=== PATIENT | female | born 1955 | race Caucasian/White ===

== ENCOUNTER → 2016-09-22 | Outpatient (CLI) | payer OTHER ==
[~2016-09-22] MED LIST: ASPI-496 PO; BUDE10.2; CA C1TAB62 PO; CALC3.7S5 NS; CALC400T6 PO; CEFD300C37 PO; CHOL5000 PO; GABA100C PO; IRON1TAB2 PO; LEVO100T PO; LEVO25TA2 SL; LIOT5TAB3 PO; METR500T PO; MONT10TA9 PO; OMEGA RED KRILL PO; ONDA4TAB10 PO; PANT40TA5 PO; POLY17PO5 PO; PROG100C2 PO; ROSU5TAB PO; [UNRECOGNIZED DRUG - CODE]; [UNRECOGNIZED DRUG - CODE] SC; [UNRECOGNIZED DRUG - OTHER] PO; biest; estradiol SL
[2016-09-22 16:23] LABS: ASPARTATE AMINO TRANSFERASE 11 U/L (15-37); BLOOD UREA NITROGEN 13 mg/dL (7-18)
== END | disposition home or self-care (01) ==
LOC: STAR 14:55
PROVIDERS: ATTEND Surgery
DX: Z01.818 Encounter for other preprocedural examination (principal); R06.02 Shortness of breath; M47.894 Other spondylosis, thoracic region; Z90.49 Acquired absence of other specified parts of digestive tract
CPT/HCPCS: 36415; 71020; 80053; 85025; 93005

== ENCOUNTER 2016-10-21 07:34 | Emergency (ER) | payer OTHER ==
[~2016-10-21] VITALS: Ht 162.6 cm; Wt 80.0 kg
[~2016-10-21 07:34] MED LIST changes: +CALC200T3 PO; +OXYC-302 PO; +VITAMIN B12 INJ
[2016-10-21 07:37] VITALS: BP 140/87
[2016-10-21] MEDS ORDERED: SODIUM CHLORIDE 0.9% 1,000 ML IV ONE (07:59)
[2016-10-21] MEDS ORDERED: FAMOTIDINE 20 MG/2 ML IVP ONE (08:00)
[2016-10-21] MEDS ORDERED: SODIUM CHLORIDE 0.9% 1,000ML IVBOLUS ONE (08:00)
[2016-10-21] MEDS ORDERED: ONDANSETRON 2MG/ML, 2ML IVPush ONE (08:00)
[2016-10-21] MEDS ORDERED: MORPHINE SULFATE 4 MG/ML, 1ML IVPush PRN (08:00)
[2016-10-21] MEDS ORDERED: DIPHENHYDRAMINE 50 MG/ML, 1ML ONE (08:17)
[2016-10-21] MEDS ORDERED: KETOROLAC 30 MG/1 ML ONE (08:17)
[2016-10-21] MEDS ORDERED: KETOROLAC 30 MG/1 ML IVPush ONE (08:30)
[2016-10-21] MEDS ORDERED: DIPHENHYDRAMINE 50 MG/ML, 1ML IVPush PRN (08:30)
[2016-10-21 08:40] LABS: ASPARTATE AMINO TRANSFERASE 17 U/L (15-37); BLOOD UREA NITROGEN 10 mg/dL (7-18)
[2016-10-21] MEDS ORDERED: OMNIPAQUE 350 MG/ML, 100ML BOTTLE ONE (09:25)
== END 2016-10-21 10:22 | disposition home or self-care (01) ==
LOC: ED 10:16
DX: R10.84 Generalized abdominal pain (principal); Z90.49 Acquired absence of other specified parts of digestive tract; G43.909 Migraine, unspecified, not intractable, without status migrainosus; Z88.1 Allergy status to other antibiotic agents; Z88.8 Allergy status to other drugs, medicaments and biological substances; Z88.6 Allergy status to analgesic agent
CPT/HCPCS: 36415; 74000; 74177; 80053; 81003; 83605; 83690; 85025; 85610; 96361; 96374; 96375; 99285; J1200; J1885; J2405; J7030; Q9967; S0028

== ENCOUNTER 2017-03-01 08:04 | Emergency (ER) | payer OTHER ==
[~2017-03-01] VITALS: Ht 162.6 cm; Wt 77.8 kg
[2017-03-01] MEDS ORDERED: [UNRECOGNIZED DRUG - CODE] SQ (08:36)
[2017-03-01] MEDS ORDERED: ONDANSETRON 2MG/ML, 2ML ONE (08:50)
[2017-03-01] MEDS ORDERED: morphine SULFATE 10 MG/ML, 1ML ONE (08:50)
[2017-03-01 08:58] LABS: HEMATOCRIT 43.7 % (34.6-47.8); HEMOGLOBIN 14.5 g/dL (11.7-16.4); WHITE BLOOD COUNT 6.6 x10^3/uL (3.4-10)
[2017-03-01] MEDS ORDERED: SODIUM CHLORIDE 0.9% 1,000ML IVBOLUS ONE (09:00)
[2017-03-01] MEDS ORDERED: MORPHINE SULFATE 4 MG/ML, 1ML IVPush PRN (09:00)
[2017-03-01] MEDS ORDERED: ONDANSETRON 2MG/ML, 2ML IVPush ONE (09:00)
[2017-03-01 09:03] LABS: ASPARTATE AMINO TRANSFERASE 13 U/L (15-37); BLOOD UREA NITROGEN 15 mg/dL (7-18)
[2017-03-01 11:07] VITALS: BP 111/77
== END 2017-03-01 11:34 | disposition home or self-care (01) ==
LOC: ED 09:26
DX: M94.0 Chondrocostal junction syndrome [Tietze] (principal); G89.29 Other chronic pain; G43.909 Migraine, unspecified, not intractable, without status migrainosus; I45.10 Unspecified right bundle-branch block; Z90.49 Acquired absence of other specified parts of digestive tract
CPT/HCPCS: 36415; 71101; 74022; 80053; 81003; 85025; 93005; 96361; 96374; 96375; 99285; J2405; J7030

== ENCOUNTER → 2017-09-05 | Outpatient (CLI) | payer OTHER ==
[~2017-09-05] MED LIST changes: +OMNIPAQUE 350 MG/ML, 100ML BOTTLE ONE; +[UNRECOGNIZED DRUG - CODE] SQ
[2017-09-05 15:19] LABS: BASOPHILS # (AUTO) 0.08 x10^3/uL (0-0.1); BASOPHILS % (AUTO) 1 % (0-1); EOSINOPHILS # (AUTO) 0.14 x10^3/uL (0-0.4); EOSINOPHILS % (AUTO) 2 % (1-7); LYMPHOCYTES # (AUTO) 2.38 x10^3/uL (1-3.4); LYMPHOCYTES % (AUTO) 35 % (22-44); MD NO; MEAN CORPUSCULAR HEMOGLOBIN 26.3 pg (27.0-34.8); MEAN CORPUSCULAR HGB CONC 33.4 g/dL (32.4-35.8); MEAN CORPUSCULAR VOLUME 78.7 fL (80-100); MEAN PLATELET VOLUME 8.3 fL (7.4-10.4); MONOCYTES # (AUTO) 0.63 x10^3/uL (0.2-0.8); MONOCYTES % (AUTO) 9 % (2-9); NEUTROPHILS # (AUTO) 3.48 x10^3/uL (1.8-6.8); NEUTROPHILS % (AUTO) 52 % (42-75); PLATELET COUNT 341 x10^3/uL (130-400); RED BLOOD COUNT 5.74 x10^6/uL (3.82-5.3); RED CELL DISTRIBUTION WIDTH 13.7 % (9.6-15.2)
[2017-09-05 15:31] LABS: ALANINE AMINOTRANSFERASE 22 U/L (12-78); ALBUMIN 3.6 g/dL (3.4-5.0); ANION GAP 8 mmol/L (5-15); CALCIUM 9.2 mg/dL (8.5-10.1); CHLORIDE 104 mmol/L (98-107)
[2017-09-05 15:34] LABS: ALKALINE PHOSPHATASE 84 U/L (45-117); BILIRUBIN,TOTAL 0.3 mg/dL (0.2-1.0); CREATININE 0.81 mg/dL (0.55-1.02); TOTAL PROTEIN 7.5 g/dL (6.4-8.2)
[2017-09-05 15:43] LABS: FREE T4 (FREE THYROXINE) 0.13 ng/dL (0.76-1.46); THYROID STIMULATING HORMONE 0.006 mIU/L (0.358-3.740)
[2017-09-05 15:43] LABS: MICROSCOPIC INDICATED
[2017-09-05 15:44] LABS: CULTURE INDICATED? YES
== END ==
LOC: RAD 14:28
PROVIDERS: ATTEND Nurse Practitioner Primary Care
DX: Z13.220 Encounter for screening for lipoid disorders (principal); K44.9 Diaphragmatic hernia without obstruction or gangrene; E78.1 Pure hyperglyceridemia; E23.0 Hypopituitarism; E03.9 Hypothyroidism, unspecified; R53.83 Other fatigue; E61.1 Iron deficiency; E55.9 Vitamin D deficiency, unspecified; R51 Headache
CPT/HCPCS: 36415; 74177; 80053; 80074; 81001; 82150; 82728; 83540; 83550; 83690; 84439; 84443; 84466; 84480; 85025; 86644; 86645; 86663; 86664; 86665; 86747; 87086; Q9967

== ENCOUNTER 2017-09-07 22:04 | Inpatient (IN) | payer OTHER ==
[~2017-09-07] VITALS: Ht 162.6 cm; Wt 84.8 kg
[~2017-09-07 22:04] MED LIST changes: -OMNIPAQUE 350 MG/ML, 100ML BOTTLE ONE
[2017-09-08 00:01] LABS: BASOPHILS # (AUTO) 0.05 x10^3/uL (0-0.1); BASOPHILS % (AUTO) 1 % (0-1); EOSINOPHILS # (AUTO) 0.15 x10^3/uL (0-0.4); EOSINOPHILS % (AUTO) 2 % (1-7); LYMPHOCYTES # (AUTO) 2.72 x10^3/uL (1-3.4); LYMPHOCYTES % (AUTO) 39 % (22-44); MD NO; MEAN CORPUSCULAR HEMOGLOBIN 26.7 pg (27.0-34.8); MEAN CORPUSCULAR HGB CONC 33.6 g/dL (32.4-35.8); MEAN CORPUSCULAR VOLUME 79.3 fL (80-100); MEAN PLATELET VOLUME 8.4 fL (7.4-10.4); MONOCYTES # (AUTO) 0.63 x10^3/uL (0.2-0.8); MONOCYTES % (AUTO) 9 % (2-9); NEUTROPHILS # (AUTO) 3.38 x10^3/uL (1.8-6.8); NEUTROPHILS % (AUTO) 49 % (42-75); PLATELET COUNT 355 x10^3/uL (130-400); RED BLOOD COUNT 5.69 x10^6/uL (3.82-5.3); RED CELL DISTRIBUTION WIDTH 13.7 % (9.6-15.2)
[2017-09-08 00:13] LABS: ALANINE AMINOTRANSFERASE 22 U/L (12-78); ALBUMIN 3.6 g/dL (3.4-5.0); ANION GAP 7 mmol/L (5-15); CALCIUM 9.3 mg/dL (8.5-10.1); CHLORIDE 106 mmol/L (98-107); CREATININE 0.82 mg/dL (0.55-1.02)
[2017-09-08 00:15] LABS: ALKALINE PHOSPHATASE 86 U/L (45-117); BILIRUBIN,TOTAL 0.3 mg/dL (0.2-1.0); TOTAL PROTEIN 7.4 g/dL (6.4-8.2)
[2017-09-08 00:21] LABS: TROPONIN I < 0.015 ng/mL (0.000-0.045)
[2017-09-08] MEDS ORDERED: PROCHLORPERAZINE 5 MG/ML, 2ML IVPush ONE (00:30)
[2017-09-08] MEDS ORDERED: MORPHINE SULFATE 4 MG/ML, 1ML IVPush ONE (00:30)
[2017-09-08] MEDS ORDERED: METOCLOPRAMIDE 5 MG/ML, 2ML IVPush ONE (00:30)
[2017-09-08] MEDS ORDERED: FENTANYL PF 100 MCG/2ML IVPush ONE (00:30)
[2017-09-08 00:33] LABS: INTERNATIONAL NORMALIZED RATIO 0.96 (0.93-1.1)
[2017-09-08] MEDS ORDERED: FENTANYL PF 100 MCG/2ML ONE (00:33)
[2017-09-08 00:37] LABS: CULTURE INDICATED? YES; MICROSCOPIC INDICATED
[2017-09-08] MEDS ORDERED: OMNIPAQUE 350 MG/ML, 100ML BOTTLE ONE (01:42)
[2017-09-08] MEDS ORDERED: CYAN10002 SQ (02:06)
[2017-09-08] MEDS ORDERED: APIX5TAB PO (02:06)
[2017-09-08] MEDS ORDERED: METOCLOPRAMIDE 5 MG/ML, 2ML ONE (02:11)
[2017-09-08] MEDS ORDERED: morphine SULFATE 10 MG/ML, 1ML IVPush PRN (02:30)
[2017-09-08] MEDS ORDERED: POLYETHYLENE GLYCOL 17 GM PACKET PO PRN (02:30)
[2017-09-08] MEDS ORDERED: BISACODYL 10 MG SUPP PR PRN (02:30)
[2017-09-08] MEDS ORDERED: PROMETHAZINE 25 MG/ML, 1ML IM PRN (02:30)
[2017-09-08] MEDS ORDERED: hydrALAzine 20 MG/ML, 1ML IVPush PRN (02:30)
[2017-09-08] MEDS: HEPARIN 5,000 UNITS/ML, 1ML SQ SCH ×3 (02:30→20:19)
[2017-09-08] MEDS ORDERED: ONDANSETRON 2MG/ML, 2ML IVPush PRN (02:30)
[2017-09-08] MEDS ORDERED: ONDANSETRON ODT 4 MG PO PRN (02:30)
[2017-09-08 03:03] VITALS: BP 112/70
[2017-09-08 03:22] LABS: HEMOGLOBIN A1C 6.2 % (4.2-6.3)
[2017-09-08 03:24] LABS: FREE T4 (FREE THYROXINE) 0.12 ng/dL (0.76-1.46); THYROID STIMULATING HORMONE 0.008 mIU/L (0.358-3.740)
[2017-09-08] MEDS: B12 MC SCH ×3 (03:30→16:37)
[2017-09-08] MEDS: SODIUM CHLORIDE 0.9% 1,000 ML IV SCH ×3 (03:44→22:25)
[2017-09-08] MEDS ORDERED: LIOTHYRONINE 5 MCG TABLET HOMEMEDPO ONE (06:00)
[2017-09-08 06:29] VITALS: BP 117/69
[2017-09-08] MEDS: OXYcodone IR 5MG TABLET PO PRN ×3 (08:03→20:19)
[2017-09-08] MEDS: CYANOCOBALAMIN 1,000 MCG/ML, 1ML SQ SCH (08:04)
[2017-09-08] MEDS: SENNA/DOCUSATE TABLET PO SCH (08:04)
[2017-09-08 14:00] VITALS: BP 109/70
[2017-09-08] MEDS ORDERED: LIOTHYRONINE 5 MCG TABLET PO SCH ×2 (16:30→21:00)
[2017-09-08 18:48] VITALS: BP 106/70
[2017-09-08] MEDS: LIOTHYRONINE 5 MCG TABLET PO SCH (20:19)
[2017-09-08] MEDS: SOMATROPIN SQ SCH (20:20)
[2017-09-08] MEDS: DIPHENHYDRAMINE 25 MG CAPSULE PO PRN (22:25)
[2017-09-09] MEDS: B12 MC SCH ×3 (02:05→19:30)
[2017-09-09 05:15] VITALS: BP 99/64
[2017-09-09 05:42] LABS: BASOPHILS # (AUTO) 0.02 x10^3/uL (0-0.1); BASOPHILS % (AUTO) 1 % (0-1); EOSINOPHILS # (AUTO) 0.15 x10^3/uL (0-0.4); EOSINOPHILS % (AUTO) 3 % (1-7); LYMPHOCYTES % (AUTO) 50 % (22-44); MD NO; MEAN CORPUSCULAR HEMOGLOBIN 26.6 pg (27.0-34.8); MEAN CORPUSCULAR HGB CONC 33.1 g/dL (32.4-35.8); MEAN CORPUSCULAR VOLUME 80.4 fL (80-100); MEAN PLATELET VOLUME 8.3 fL (7.4-10.4); MONOCYTES # (AUTO) 0.42 x10^3/uL (0.2-0.8); MONOCYTES % (AUTO) 9 % (2-9); NEUTROPHILS # (AUTO) 1.77 x10^3/uL (1.8-6.8); NEUTROPHILS % (AUTO) 37 % (42-75); PLATELET COUNT 277 x10^3/uL (130-400); RED BLOOD COUNT 4.88 x10^6/uL (3.82-5.3); RED CELL DISTRIBUTION WIDTH 13.7 % (9.6-15.2)
[2017-09-09 05:56] LABS: ALBUMIN 2.8 g/dL (3.4-5.0); ANION GAP 7 mmol/L (5-15); CHLORIDE 110 mmol/L (98-107)
[2017-09-09 06:01] LABS: ALANINE AMINOTRANSFERASE 21 U/L (12-78); ALKALINE PHOSPHATASE 71 U/L (45-117); BILIRUBIN,TOTAL 0.3 mg/dL (0.2-1.0); CHOL/HDL RATIO 5.5; CHOLESTEROL, TOTAL 148 mg/dL (140-239); CREATININE 0.76 mg/dL (0.55-1.02); HDL CHOL % 18 % (28-40); HDL CHOLESTEROL (DIRECT) 27 mg/dL (40-60); LDL CHOLESTEROL,CALCULATED 73 mg/dL (54-169); LDL/HDL RATIO 2.7 (0.5-3.0); TOTAL PROTEIN 5.8 g/dL (6.4-8.2); TRIGLYCERIDES 238 mg/dL (50-200); VLDL CHOLESTEROL 48 mg/dL (0-25)
[2017-09-09] MEDS: HEPARIN 5,000 UNITS/ML, 1ML SQ SCH ×2 (06:22→15:12)
[2017-09-09] MEDS: LIOTHYRONINE 5 MCG TABLET PO SCH ×4 (06:22→20:15)
[2017-09-09 08:00] VITALS: BP 120/80
[2017-09-09] MEDS: OXYcodone IR 5MG TABLET PO PRN ×2 (08:20→15:12)
[2017-09-09] MEDS: SENNA/DOCUSATE TABLET PO SCH (08:21)
[2017-09-09] MEDS: CYANOCOBALAMIN 1,000 MCG/ML, 1ML SQ SCH (08:21)
[2017-09-09 14:30] VITALS: BP 110/70
[2017-09-09 19:27] VITALS: BP 111/69
[2017-09-09] MEDS: APIXABAN 5 MG TABLET HOMEMEDPO SCH (20:18)
[2017-09-09] MEDS: SOMATROPIN SQ SCH (20:19)
[2017-09-09] MEDS: DIPHENHYDRAMINE 25 MG CAPSULE PO PRN (21:52)
[2017-09-09] MEDS: ACETAMINOPHEN 325 MG TABLET PO PRN (21:52)
[2017-09-10 00:30] VITALS: BP 112/69
[2017-09-10] MEDS: B12 MC SCH (03:27)
[2017-09-10] MEDS: ACETAMINOPHEN 325 MG TABLET PO PRN (06:06)
[2017-09-10] MEDS: LIOTHYRONINE 5 MCG TABLET PO SCH ×2 (06:07→10:30)
[2017-09-10 06:10] LABS: BASOPHILS # (AUTO) 0.03 x10^3/uL (0-0.1); BASOPHILS % (AUTO) 1 % (0-1); EOSINOPHILS # (AUTO) 0.18 x10^3/uL (0-0.4); EOSINOPHILS % (AUTO) 4 % (1-7); LYMPHOCYTES # (AUTO) 2.17 x10^3/uL (1-3.4); LYMPHOCYTES % (AUTO) 45 % (22-44); MD NO; MEAN CORPUSCULAR HEMOGLOBIN 26.4 pg (27.0-34.8); MEAN CORPUSCULAR HGB CONC 33.3 g/dL (32.4-35.8); MEAN CORPUSCULAR VOLUME 79.5 fL (80-100); MEAN PLATELET VOLUME 8.6 fL (7.4-10.4); MONOCYTES % (AUTO) 10 % (2-9); NEUTROPHILS # (AUTO) 1.94 x10^3/uL (1.8-6.8); NEUTROPHILS % (AUTO) 40 % (42-75); PLATELET COUNT 300 x10^3/uL (130-400); RED BLOOD COUNT 5.25 x10^6/uL (3.82-5.3); RED CELL DISTRIBUTION WIDTH 13.9 % (9.6-15.2)
[2017-09-10 06:16] LABS: ALBUMIN 3.1 g/dL (3.4-5.0); ANION GAP 7 mmol/L (5-15); CALCIUM 8.5 mg/dL (8.5-10.1); CHLORIDE 109 mmol/L (98-107)
[2017-09-10 06:20] LABS: ALANINE AMINOTRANSFERASE 21 U/L (12-78); ALKALINE PHOSPHATASE 74 U/L (45-117); BILIRUBIN,TOTAL 0.3 mg/dL (0.2-1.0); TOTAL PROTEIN 6.3 g/dL (6.4-8.2)
[2017-09-10 08:30] VITALS: BP 115/77
[2017-09-10] MEDS ORDERED: POLY17PO5 PO (08:45)
[2017-09-10] MEDS ORDERED: ACET325T14 PO (08:45)
[2017-09-10] MEDS: CYANOCOBALAMIN 1,000 MCG/ML, 1ML SQ SCH (09:00)
[2017-09-10] MEDS: SENNA/DOCUSATE TABLET PO SCH (09:00)
[2017-09-10] MEDS: APIXABAN 5 MG TABLET HOMEMEDPO SCH (10:50)
== END 2017-09-10 11:23 | disposition home or self-care (01) | DRG 392 ==
LOC: ED 23:59 → EDIP 09-08 02:42 → 3NE 09-08 02:52
PROVIDERS: ADMIT Internal Medicine; ATTEND Internal Medicine
DX: R10.9 Unspecified abdominal pain (principal); E23.0 Hypopituitarism; K62.5 Hemorrhage of anus and rectum; Z88.8 Allergy status to other drugs, medicaments and biological substances; D25.9 Leiomyoma of uterus, unspecified; Z91.041 Radiographic dye allergy status; E03.9 Hypothyroidism, unspecified; J45.909 Unspecified asthma, uncomplicated; K59.00 Constipation, unspecified; Z86.72 Personal history of thrombophlebitis; Z90.49 Acquired absence of other specified parts of digestive tract; Z90.710 Acquired absence of both cervix and uterus; G89.29 Other chronic pain; M54.9 Dorsalgia, unspecified; M54.2 Cervicalgia
CPT/HCPCS: 36415; 71275; 74175; 74181; 80053; 80061; 81001; 83036; 83690; 83735; 84439; 84443; 84484; 85025; 85610; 85730; 87086; 93975; 96374; 96375; J1644; J3010; Q9967; J2765; J7030; Q0163

== ENCOUNTER 2017-09-19 05:56 | Inpatient (IN) | payer OTHER ==
[~2017-09-19] VITALS: Ht 162.6 cm; Wt 88.1 kg
[~2017-09-19 05:56] MED LIST changes: +ACET325T14 PO; +APIX5TAB PO; +CYAN10002 SQ
[2017-09-19] MEDS ORDERED: LACTATED RINGERS 1,000 ML IV SCH (06:34)
[2017-09-19] MEDS ORDERED: EPINEPHRINE 1 MG/ML, 1ML ONE (06:46)
[2017-09-19] MEDS ORDERED: BUPIVACAINE/PF 0.25% ONE (06:46)
[2017-09-19] MEDS ORDERED: HEPARIN 1,000 UNITS/ML, 10ML ONE (06:46)
[2017-09-19 06:48] VITALS: BP 117/82
[2017-09-19] MEDS ORDERED: THROMBIN 5,000 UNIT VIAL TP ONE (06:49)
[2017-09-19] MEDS ORDERED: LIDOCAINE-MPF 1%, 2ML INFIL ONE (07:00)
[2017-09-19] MEDS ORDERED: FENTANYL PF 250 MCG/5ML ONE (07:06)
[2017-09-19] MEDS ORDERED: MIDAZOLAM 1 MG/ML, 2ML ONE (07:06)
[2017-09-19] MEDS ORDERED: GABAPENTIN 300 MG CAPSULE ONE (07:13)
[2017-09-19] MEDS ORDERED: OxyconTIN ER 10 MG TAB.ER ONE (07:13)
[2017-09-19] MEDS ORDERED: ACETAMINOPHEN 500 MG TABLET ONE (07:14)
[2017-09-19] MEDS ORDERED: SCOPOLAMINE PATCH, 1.5MG PATCH.TD72 TD ONE (07:20)
[2017-09-19] MEDS ORDERED: CEFAZOLIN 1,000 MG ONE (07:42)
[2017-09-19] MEDS ORDERED: GLYCOPYRROLATE 0.2MG/1ML, 5ML ONE (07:42)
[2017-09-19] MEDS ORDERED: ONDANSETRON 2MG/ML, 2ML ONE (07:42)
[2017-09-19] MEDS ORDERED: PROPOFOL 10 MG/ML, 20ML ONE (07:42)
[2017-09-19] MEDS ORDERED: DEXAMETHASONE 4 MG/ML, 1ML ONE (07:42)
[2017-09-19] MEDS ORDERED: NEOSTIGMINE 1 MG/ML, 10ML ONE (07:42)
[2017-09-19] MEDS ORDERED: ROCURONIUM 10MG/ML,5ML ONE (07:42)
[2017-09-19] MEDS ORDERED: ALBUTEROL SULFATE 2.5 MG/3 ML NPPB PRN (08:30)
[2017-09-19] MEDS ORDERED: LABETALOL 5MG/ML, 20ML IV PRN (08:30)
[2017-09-19] MEDS ORDERED: MEPERIDINE/PF 25MG/0.5ML IVPush PRN (08:30)
[2017-09-19] MEDS ORDERED: hydrALAzine 20 MG/ML, 1ML IV PRN (08:30)
[2017-09-19] MEDS ORDERED: PROMETHAZINE 25 MG SUPP PR PRN (08:30)
[2017-09-19] MEDS ORDERED: PROMETHAZINE 25 MG/ML, 1ML IV PRN (08:30)
[2017-09-19] MEDS ORDERED: LORazepam 2 MG/ML, 1ML IVPush PRN (08:30)
[2017-09-19] MEDS ORDERED: FENTANYL PF 100 MCG/2ML ONE (10:43)
[2017-09-19] MEDS: FENTANYL PF 100 MCG/2ML IV PRN ×2 (10:44→11:02)
[2017-09-19] MEDS ORDERED: KETOROLAC 30 MG/1 ML ONE ×2 (10:48→15:20)
[2017-09-19] MEDS ORDERED: MEPERIDINE/PF 25MG/0.5ML ONE (11:05)
[2017-09-19] MEDS ORDERED: ONDANSETRON 2MG/ML, 2ML IVPush PRN ×2 (12:00→16:00)
[2017-09-19] MEDS ORDERED: OXYcodone/APAP 7.5/325MG TABLET PO PRN (12:00)
[2017-09-19] MEDS ORDERED: LACTATED RINGERS 1,000 ML IVBOLUS ONE (13:30)
[2017-09-19] MEDS ORDERED: DIPHENHYDRAMINE 50 MG/ML, 1ML ONE (15:20)
[2017-09-19] MEDS ORDERED: SODIUM CHLORIDE 0.9% 1,000ML IVBOLUS STA (15:31)
[2017-09-19] MEDS: KETOROLAC 30 MG/1 ML IVPush SCH ×2 (15:53→22:51)
[2017-09-19] MEDS ORDERED: HYDROcodone/APAP 10/325 MG TABLET PO PRN (16:00)
[2017-09-19] MEDS ORDERED: DIPHENHYDRAMINE 50 MG/ML, 1ML IVPush PRN ×2 (16:00→22:00)
[2017-09-19] MEDS: METOCLOPRAMIDE 10MG TABLET PO SCH ×2 (17:04→22:52)
[2017-09-19] MEDS: D5%-0.45NACL+KCL 20MEQ 1,000 ML IV SCH (17:49)
[2017-09-19 20:17] VITALS: BP 92/50
[2017-09-20] VITALS (13 sets, daily range): BP systolic 85–103; BP diastolic 46–56
[2017-09-20] MEDS: D5%-0.45NACL+KCL 20MEQ 1,000 ML IV SCH ×3 (02:45→16:19)
[2017-09-20] MEDS: METOCLOPRAMIDE 10MG TABLET PO SCH ×4 (04:35→23:04)
[2017-09-20] MEDS: KETOROLAC 30 MG/1 ML IVPush SCH ×4 (04:35→22:54)
[2017-09-20 05:05] LABS: BASOPHILS # (AUTO) 0.03 x10^3/uL (0-0.1); BASOPHILS % (AUTO) 0 % (0-1); EOSINOPHILS # (AUTO) 0.06 x10^3/uL (0-0.4); EOSINOPHILS % (AUTO) 1 % (1-7); LYMPHOCYTES # (AUTO) 1.73 x10^3/uL (1-3.4); LYMPHOCYTES % (AUTO) 15 % (22-44); MD NO; MEAN CORPUSCULAR HEMOGLOBIN 26.3 pg (27.0-34.8); MEAN CORPUSCULAR HGB CONC 32.9 g/dL (32.4-35.8); MEAN CORPUSCULAR VOLUME 79.9 fL (80-100); MEAN PLATELET VOLUME 8.8 fL (7.4-10.4); MONOCYTES # (AUTO) 0.96 x10^3/uL (0.2-0.8); MONOCYTES % (AUTO) 8 % (2-9); NEUTROPHILS % (AUTO) 76 % (42-75); PLATELET COUNT 281 x10^3/uL (130-400); RED BLOOD COUNT 3.55 x10^6/uL (3.82-5.3); RED CELL DISTRIBUTION WIDTH 14.3 % (9.6-15.2)
[2017-09-20 05:17] LABS: CHLORIDE 109 mmol/L (98-107)
[2017-09-20 05:34] LABS: ANION GAP 7 mmol/L (5-15); CALCIUM 7.9 mg/dL (8.5-10.1); CREATININE 0.68 mg/dL (0.55-1.02)
[2017-09-20] MEDS ORDERED: SODIUM CHLORIDE 0.9%, 500ML IVBOLUS ONE (10:00)
[2017-09-20] MEDS ORDERED: HYDR-3307 PO (10:27)
[2017-09-20] MEDS ORDERED: METO10TA82 PO (10:28)
[2017-09-20 11:02] LABS: BASOPHILS # (AUTO) 0.05 x10^3/uL (0-0.1); BASOPHILS % (AUTO) 1 % (0-1); EOSINOPHILS # (AUTO) 0.21 x10^3/uL (0-0.4); EOSINOPHILS % (AUTO) 2 % (1-7); LYMPHOCYTES # (AUTO) 2.04 x10^3/uL (1-3.4); LYMPHOCYTES % (AUTO) 19 % (22-44); MD NO; MEAN CORPUSCULAR HEMOGLOBIN 26.4 pg (27.0-34.8); MEAN CORPUSCULAR HGB CONC 33.2 g/dL (32.4-35.8); MEAN CORPUSCULAR VOLUME 79.6 fL (80-100); MEAN PLATELET VOLUME 8.4 fL (7.4-10.4); MONOCYTES # (AUTO) 0.83 x10^3/uL (0.2-0.8); MONOCYTES % (AUTO) 8 % (2-9); NEUTROPHILS # (AUTO) 7.69 x10^3/uL (1.8-6.8); NEUTROPHILS % (AUTO) 71 % (42-75); PLATELET COUNT 295 x10^3/uL (130-400); RED BLOOD COUNT 3.52 x10^6/uL (3.82-5.3); RED CELL DISTRIBUTION WIDTH 14.6 % (9.6-15.2)
[2017-09-21] MEDS: D5%-0.45NACL+KCL 20MEQ 1,000 ML IV SCH ×2 (01:58→10:19)
[2017-09-21 04:22] VITALS: BP 94/56
[2017-09-21] MEDS: METOCLOPRAMIDE 10MG TABLET PO SCH ×2 (04:42→10:19)
[2017-09-21] MEDS: KETOROLAC 30 MG/1 ML IVPush SCH ×2 (04:43→10:18)
[2017-09-21 06:06] LABS: BASOPHILS # (AUTO) 0.01 x10^3/uL (0-0.1); BASOPHILS % (AUTO) 0 % (0-1); EOSINOPHILS % (AUTO) 4 % (1-7); LYMPHOCYTES # (AUTO) 2.43 x10^3/uL (1-3.4); LYMPHOCYTES % (AUTO) 32 % (22-44); MD NO; MEAN CORPUSCULAR HGB CONC 32.2 g/dL (32.4-35.8); MEAN CORPUSCULAR VOLUME 80.5 fL (80-100); MEAN PLATELET VOLUME 8.7 fL (7.4-10.4); MONOCYTES # (AUTO) 0.58 x10^3/uL (0.2-0.8); MONOCYTES % (AUTO) 8 % (2-9); NEUTROPHILS % (AUTO) 56 % (42-75); PLATELET COUNT 252 x10^3/uL (130-400); RED BLOOD COUNT 3.21 x10^6/uL (3.82-5.3); RED CELL DISTRIBUTION WIDTH 14.4 % (9.6-15.2)
[2017-09-21 06:11] LABS: ANION GAP 5 mmol/L (5-15); CALCIUM 7.8 mg/dL (8.5-10.1); CHLORIDE 112 mmol/L (98-107)
[2017-09-21 06:12] LABS: CREATININE 0.76 mg/dL (0.55-1.02)
[2017-09-21 08:08] VITALS: BP 94/57
[2017-09-21 13:11] VITALS: BP 108/58
[2017-09-21 14:48] VITALS: BP 127/73
== END 2017-09-21 15:14 | disposition home or self-care (01) | DRG 743 ==
LOC: OUT 05:56 → ORIP 15:31 → 4NOR 16:26 → OBSVTOIN 09-20 14:39 → DCLOUNGE 09-21 14:57
PROVIDERS: ADMIT Specialist; ATTEND Specialist
PROC: 0UT20ZZ Resection of Bilateral Ovaries, Open Approach (ICD-10-PCS; 2017-09-19)
PROC: 0UT70ZZ Resection of Bilateral Fallopian Tubes, Open Approach (ICD-10-PCS; 2017-09-19)
PROC: 0JQC0ZZ Repair Pelvic Region Subcutaneous Tissue and Fascia, Open Approach (ICD-10-PCS; 2017-09-19)
PROC: 0JQC0ZZ Repair Pelvic Region Subcutaneous Tissue and Fascia, Open Approach (ICD-10-PCS; 2017-09-19)
PROC: 8E0W4CZ Robotic Assisted Procedure of Trunk Region, Percutaneous Endoscopic Approach (ICD-10-PCS; 2017-09-19)
PROC: 0UT90ZZ Resection of Uterus, Open Approach (ICD-10-PCS; principal; 2017-09-19 07:30)
DX: D25.1 Intramural leiomyoma of uterus (principal); D64.9 Anemia, unspecified; N80.0 Endometriosis of uterus; G89.29 Other chronic pain; K66.0 Peritoneal adhesions (postprocedural) (postinfection); N81.10 Cystocele, unspecified; N81.6 Rectocele; K21.9 Gastro-esophageal reflux disease without esophagitis
CPT/HCPCS: 36415; 71045; 74018; 80048; 85014; 85018; 85025; 86850; 86900; 86923; 88307; 88331; 93005; G0378; J0171; J0690; J1100; J1644; J1885; J2175; J2250; J2405; J2704; J2710; J3010; J3490; J1200; J3480; J7030; J7040; J7120

== ENCOUNTER → 2017-12-22 | Outpatient (CLI) | payer OTHER ==
[~2017-12-22] MED LIST changes: +CHELATED MAGNESIUM PO; +CHOL200024 PO; +ERTU5TAB PO; +ESTROGEN CREAM VG; +HYDR-3307 PO; +LIOT5TAB10 PO; +LIOT5TAB10 SL; +METO10TA82 PO; +MIRALAX; +TUMS; +[UNRECOGNIZED DRUG - OTHER] PO; +[UNRECOGNIZED DRUG - OTHER] SL
[2017-12-22 13:12] LABS: BASOPHILS # (AUTO) 0.03 x10^3/uL (0-0.1); BASOPHILS % (AUTO) 0 % (0-1); EOSINOPHILS # (AUTO) 0.16 x10^3/uL (0-0.4); EOSINOPHILS % (AUTO) 2 % (1-7); LYMPHOCYTES # (AUTO) 2.57 x10^3/uL (1-3.4); LYMPHOCYTES % (AUTO) 29 % (22-44); MD NO; MEAN CORPUSCULAR HEMOGLOBIN 22.7 pg (27.0-34.8); MEAN CORPUSCULAR HGB CONC 32.4 g/dL (32.4-35.8); MEAN CORPUSCULAR VOLUME 69.9 fL (80-100); MEAN PLATELET VOLUME 8.2 fL (7.4-10.4); MONOCYTES # (AUTO) 0.51 x10^3/uL (0.2-0.8); MONOCYTES % (AUTO) 6 % (2-9); NEUTROPHILS # (AUTO) 5.53 x10^3/uL (1.8-6.8); NEUTROPHILS % (AUTO) 63 % (42-75); PLATELET COUNT 404 x10^3/uL (130-400); RED CELL DISTRIBUTION WIDTH 20.1 % (9.6-15.2)
[2017-12-22 13:23] LABS: ALBUMIN 3.3 g/dL (3.4-5.0); ANION GAP 6 mmol/L (5-15); CALCIUM 8.8 mg/dL (8.5-10.1); CHLORIDE 107 mmol/L (98-107)
[2017-12-22 13:27] LABS: ALANINE AMINOTRANSFERASE 15 U/L (12-78); ALKALINE PHOSPHATASE 94 U/L (45-117); BILIRUBIN,TOTAL 0.5 mg/dL (0.2-1.0); CREATININE 0.82 mg/dL (0.55-1.02); TOTAL PROTEIN 7.2 g/dL (6.4-8.2)
[2017-12-22 13:47] LABS: INTERNATIONAL NORMALIZED RATIO 0.98 (0.93-1.1); PROTHROMBIN TIME 10.2 Seconds (9.6-11.5)
== END | disposition home or self-care (01) ==
LOC: STAR 12:22
PROVIDERS: ATTEND Specialist
DX: Z01.818 Encounter for other preprocedural examination (principal); N93.9 Abnormal uterine and vaginal bleeding, unspecified
CPT/HCPCS: 36415; 80053; 85025; 85610; 85730

== ENCOUNTER 2017-12-26 08:53 | Day surgery (SDC) | payer OTHER ==
[2017-12-22 12:39] VITALS: BP 142/77
[~2017-12-26] VITALS: Ht 162.6 cm; Wt 81.7 kg
[~2017-12-26 08:53] MED LIST changes: +FENTANYL PF 100 MCG/2ML ONE; +MIDAZOLAM 1 MG/ML, 2ML ONE; +PROPOFOL 10 MG/ML, 20ML ONE
[2017-12-26] MEDS ORDERED: ONDANSETRON 2MG/ML, 2ML ONE (08:54)
[2017-12-26] MEDS ORDERED: DEXAMETHASONE 4 MG/ML, 1ML ONE ×3 (08:54→09:55)
[2017-12-26] MEDS ORDERED: LACTATED RINGERS 1,000 ML IV SCH (09:13)
[2017-12-26] MEDS ORDERED: PROMETHAZINE 25 MG/ML, 1ML IV PRN (09:30)
[2017-12-26] MEDS ORDERED: ONDANSETRON 2MG/ML, 2ML IV PRN (09:30)
[2017-12-26] MEDS ORDERED: OXYcodone 5 MG/5 ML ORAL.SOL UDC PO PRN (09:30)
[2017-12-26] MEDS ORDERED: KETOROLAC 30 MG/1 ML IV PRN ×2 (09:30)
[2017-12-26] MEDS ORDERED: hydrALAzine 20 MG/ML, 1ML IV PRN (09:30)
[2017-12-26] MEDS ORDERED: PROMETHAZINE 25 MG SUPP PR PRN (09:30)
[2017-12-26] MEDS ORDERED: ACETAMINOPHEN 325 MG TABLET PO PRN (09:30)
[2017-12-26] MEDS ORDERED: LABETALOL 5MG/ML, 20ML IV PRN (09:30)
[2017-12-26] MEDS ORDERED: PROMETHAZINE 12.5 MG SUPP PR PRN (09:30)
[2017-12-26] MEDS ORDERED: ONDANSETRON ODT 8 MG PO PRN (09:30)
[2017-12-26] MEDS ORDERED: KETOROLAC 30 MG/1 ML ONE (09:40)
[2017-12-26] MEDS ORDERED: CEFOTETAN PMX 2GM/50ML 50 ML ONE (09:50)
[2017-12-26] MEDS ORDERED: PROPOFOL 10 MG/ML, 20ML ONE (09:52)
[2017-12-26] MEDS ORDERED: ESTROGENS CONJUGATED VAG CRM 0.625MG/1G, 30GM ONE (10:17)
[2017-12-26] MEDS ORDERED: BUPIVACAINE/PF-EPI 0.25% 1:200K INFIL ONE (10:18)
[2017-12-26] MEDS ORDERED: MEPERIDINE/PF 50 MG/ML ONE (10:43)
[2017-12-26] MEDS ORDERED: FENTANYL PF 100 MCG/2ML ONE (10:43)
[2017-12-26] MEDS ORDERED: ACETAMINOPHEN 650 MG/20.3 ML UDC ONE (10:44)
[2017-12-26] MEDS ORDERED: OXYcodone 5 MG/5 ML ORAL.SOL UDC ONE (10:44)
[2017-12-26] MEDS: MEPERIDINE/PF 25MG/0.5ML IVPush PRN ×2 (10:50→11:11)
[2017-12-26] MEDS: FENTANYL PF 100 MCG/2ML IV PRN ×2 (11:00→11:19)
[2017-12-26] MEDS ORDERED: OXYcodone/APAP 5/325MG TABLET ONE (14:50)
[2017-12-26] MEDS ORDERED: OXYcodone/APAP 5/325MG TABLET PO ONE (15:00)
[2017-12-26] MEDS ORDERED: BUPIVACAINE/PF-EPI 0.25% 1:200K ONE (17:27)
== END 2017-12-26 15:25 | disposition home or self-care (01) ==
LOC: OUT 08:53
PROVIDERS: ATTEND Specialist
DX: N93.9 Abnormal uterine and vaginal bleeding, unspecified (principal); N89.5 Stricture and atresia of vagina; Z79.899 Other long term (current) drug therapy; Z90.710 Acquired absence of both cervix and uterus; Z90.722 Acquired absence of ovaries, bilateral; Z98.890 Other specified postprocedural states; Z88.8 Allergy status to other drugs, medicaments and biological substances; Z91.041 Radiographic dye allergy status
CPT/HCPCS: 57210; J1100; J1885; J2175; J2250; J2405; J2704; J3010; J7120; S0074

== ENCOUNTER → 2018-05-24 | Outpatient (CLI) | payer OTHER ==
[~2018-05-24] MED LIST changes: -FENTANYL PF 100 MCG/2ML ONE; +MAGN400O7 PO; -MIDAZOLAM 1 MG/ML, 2ML ONE; -PROPOFOL 10 MG/ML, 20ML ONE
== END | disposition home or self-care (01) ==
LOC: CFH 10:59
PROVIDERS: ATTEND Internal Medicine Endocrinology, Diabetes & Metabolism
DX: E06.3 Autoimmune thyroiditis (principal)
CPT/HCPCS: 76536

== ENCOUNTER 2018-11-15 13:43 | Outpatient (CLI) | payer OTHER | END 2018-11-15 23:59 | disposition home or self-care (01) | LOC: STAR 13:43 | PROVIDERS: ATTEND Orthopaedic Surgery | DX: Z02.9 Encounter for administrative examinations, unspecified (principal) ==

== ENCOUNTER 2018-11-20 12:38 | Day surgery (SDC) | payer OTHER ==
[~2018-11-20] VITALS: Ht 162.6 cm; Wt 79.5 kg
[~2018-11-20 12:38] MED LIST changes: +CALC0.25 PO; -HYDR-3307 PO; +HYDR-36 PO; +LIOT5TAB PO; -LIOT5TAB3 PO; +LISI-167 PO; +PROG100C10 PO; -PROG100C2 PO
[2018-11-20] MEDS ORDERED: LACTATED RINGERS 1,000 ML IV SCH (13:17)
[2018-11-20] MEDS ORDERED: ACETAMINOPHEN 500 MG TABLET PO ONE (13:30)
[2018-11-20] MEDS ORDERED: GABAPENTIN 300 MG CAPSULE PO ONE (13:30)
[2018-11-20] MEDS ORDERED: SCOPOLAMINE PATCH, 1.5MG PATCH.TD72 TD ONE (13:30)
[2018-11-20 13:33] VITALS: BP 113/75
[2018-11-20] MEDS ORDERED: MIDAZOLAM 1 MG/ML, 2ML ONE (13:40)
[2018-11-20] MEDS ORDERED: FENTANYL PF 250 MCG/5ML ONE (13:41)
[2018-11-20] MEDS ORDERED: GLYCOPYRROLATE 0.2MG/1ML, 5ML ONE (13:51)
[2018-11-20] MEDS ORDERED: DEXAMETHASONE 4 MG/ML, 1ML ONE (13:51)
[2018-11-20] MEDS ORDERED: CEFAZOLIN 1,000 MG ONE (13:51)
[2018-11-20] MEDS ORDERED: ONDANSETRON 2MG/ML, 2ML ONE (13:51)
[2018-11-20] MEDS ORDERED: PROPOFOL 10 MG/ML, 20ML ONE (13:51)
[2018-11-20] MEDS ORDERED: NEOSTIGMINE 1 MG/ML, 10ML ONE (13:51)
[2018-11-20] MEDS ORDERED: ROCURONIUM 10MG/ML,5ML ONE (13:51)
[2018-11-20] MEDS ORDERED: LIDOCAINE 1%-EPI 1:100K, 20ML ONE (14:13)
[2018-11-20] MEDS ORDERED: ROPIvacaine/PF 0.5%, 30 ML ONE (14:13)
[2018-11-20] MEDS ORDERED: KETOROLAC 30 MG/1 ML ONE (14:45)
[2018-11-20] MEDS ORDERED: LABETALOL 5MG/ML, 20ML IV PRN (15:00)
[2018-11-20] MEDS ORDERED: ONDANSETRON ODT 8 MG PO PRN (15:00)
[2018-11-20] MEDS ORDERED: PROMETHAZINE 25 MG/ML, 1ML IM PRN ×2 (15:00)
[2018-11-20] MEDS ORDERED: PROMETHAZINE 25 MG SUPP PR PRN (15:00)
[2018-11-20] MEDS ORDERED: PROMETHAZINE 12.5 MG SUPP PR PRN (15:00)
[2018-11-20] MEDS ORDERED: ONDANSETRON 2MG/ML, 2ML IV PRN (15:00)
[2018-11-20] MEDS ORDERED: PROMETHAZINE 25 MG/ML, 1ML IV PRN (15:00)
[2018-11-20] MEDS ORDERED: hydrALAzine 20 MG/ML, 1ML IV PRN (15:00)
[2018-11-20] MEDS ORDERED: OXYcodone 5 MG/5 ML ORAL.SOL UDC PO PRN (15:00)
[2018-11-20] MEDS ORDERED: HALOPERIDOL 5 MG/ML IV PRN (15:00)
[2018-11-20] MEDS: FENTANYL PF 100 MCG/2ML IV PRN ×6 (15:25→16:05)
[2018-11-20] MEDS ORDERED: FENTANYL PF 100 MCG/2ML ONE ×3 (15:27→15:55)
[2018-11-20] MEDS ORDERED: OXYcodone 5 MG/5 ML ORAL.SOL UDC ONE (15:28)
[2018-11-20] MEDS ORDERED: MEPERIDINE/PF 25MG/ML,1ML ONE ×2 (15:28→15:44)
[2018-11-20] MEDS: MEPERIDINE/PF 25MG/0.5ML IVPush PRN ×2 (15:35→15:52)
[2018-11-20] MEDS ORDERED: PROMETHAZINE 25 MG/ML, 1ML ONE (16:00)
[2018-11-20] MEDS ORDERED: DIAZEPAM 5 MG TABLET PO ONE (17:00)
== END 2018-11-20 18:40 | disposition home or self-care (01) ==
LOC: OUT 12:38
PROVIDERS: ATTEND Orthopaedic Surgery
DX: S83.281A Other tear of lateral meniscus, current injury, right knee, initial encounter (principal); M17.11 Unilateral primary osteoarthritis, right knee; M65.861 Other synovitis and tenosynovitis, right lower leg; M94.261 Chondromalacia, right knee; I10 Essential (primary) hypertension; M79.7 Fibromyalgia; Z79.01 Long term (current) use of anticoagulants; Z79.899 Other long term (current) drug therapy; Z88.5 Allergy status to narcotic agent; Z88.8 Allergy status to other drugs, medicaments and biological substances; Z91.048 Other nonmedicinal substance allergy status; Z82.61 Family history of arthritis; X58.XXXA Exposure to other specified factors, initial encounter; Y93.89 Activity, other specified; Y92.89 Other specified places as the place of occurrence of the external cause; Y99.8 Other external cause status
CPT/HCPCS: 29873; 29876; 29881; J0690; J1100; J1885; J2175; J2250; J2405; J2704; J2795; J3010; J3490; J7120; J2710

== ENCOUNTER → 2019-06-26 | Outpatient (CLI) | payer OTHER ==
[~2019-06-26] MED LIST changes: -LIOT5TAB PO; +LIOT5TAB11 PO; +MONT10TA11 PO; -MONT10TA9 PO
== END | disposition home or self-care (01) ==
LOC: CFH 12:53
PROVIDERS: ATTEND Obstetrics & Gynecology
DX: R68.89 Other general symptoms and signs (principal)
CPT/HCPCS: 71046

== ENCOUNTER 2019-09-12 07:12 | Outpatient (CLI) | payer OTHER ==
[~2019-09-12 07:12] MED LIST changes: +HYDR-3246 PO; -HYDR-36 PO
== END 2019-09-12 23:59 | disposition home or self-care (01) ==
LOC: CFH 07:12
PROVIDERS: ATTEND Obstetrics & Gynecology
DX: N64.4 Mastodynia (principal); R92.2 Inconclusive mammogram
CPT/HCPCS: 77066; G0279

== ENCOUNTER → 2020-09-09 | Outpatient (CLI) | payer OTHER ==
[~2020-09-09] MED LIST changes: -HYDR-3246 PO; +HYDR-3248 PO; -MONT10TA11 PO; +MONT10TA17 PO; +OMNIPAQUE 350 MG/ML, 100ML BOTTLE ONE; -OXYC-302 PO; +OXYC1TAB14 PO; -PANT40TA5 PO; +PANT40TA6 PO
== END | disposition home or self-care (01) ==
LOC: CFH 10:17
PROVIDERS: ATTEND Internal Medicine
DX: E03.9 Hypothyroidism, unspecified (principal); R10.9 Unspecified abdominal pain; R10.811 Right upper quadrant abdominal tenderness; K57.92 Diverticulitis of intestine, part unspecified, without perforation or abscess without bleeding
CPT/HCPCS: 74177; 76536; Q9967